=== PATIENT | male | born 1970 | race Two or more races ===

== ENCOUNTER 2022-09-02 05:24 | Day surgery (SDC) | payer OTHER ==
[~2022-09-02] VITALS: Ht 170.2 cm; Wt 93.9 kg
[~2022-09-02 05:24] MED LIST: AMLODIP PO; HYDROCHLOROTHIA25 MG PO; IRBESARTAN-HCT1 EACH PO
== END 2022-09-02 11:05 | disposition home or self-care (01) ==
LOC: CIR.AMB 05:24
PROVIDERS: ATTEND Specialist
DX: L72.0 Epidermal cyst (principal); Z20.822 Contact with and (suspected) exposure to COVID-19; I10 Essential (primary) hypertension